=== PATIENT | male | born 1970 | race Caucasian/White ===

== ENCOUNTER 2019-02-13 11:07 | Observation (INO) ==
[2019-02-13 12:01] LABS: Hematocrit 40.4 % (42.0-52.0); Hemoglobin 14.1 gm/dL (13.5-18.0); Mean Cell Volume 98.5 fl (78-100); Mean Corpuscular Hemoglobin 34.4 pg (27-31); Mean Corpuscular Hgb Conc 34.9 g/dl (32-36); Mean Platelet Volume 8.7 fl (8-11.3); Neutrophil # 3.9 K/mm3 (1.3-6.0); Neutrophil % 64.6 % (42-75.0); Platelet Count 248 K/mm3 (150-450); Red Cell Distribution Width 11.9 % (11.5-14.0)
[2019-02-13 12:22] LABS: ALT 18 U/L (19-67); AST 18 U/L (0-48); Albumin * 3.8 gm/dl (3.4-5.0); Alkaline Phosphatase * 79 U/L (50-170); Anion Gap 10.7 mmol/L (6.8-13.8); Bilirubin, Total 0.6 mg/dL (0.0-1.1); Chloride 99 mmol/L (97-106); Potassium 3.7 mmol/L (3.4-4.6); Sodium 131 mmol/L (132-142); Total Protein 7.5 gm/dL (6.2-8.2)
[2019-02-13 12:30] LABS: BUN/Creatinine Ratio 10.7 (9.0-21.6); Blood Urea Nitrogen 9 mg/dL (6-23); Ca. Corrected For Albumin 8.7 mg/dL (8.4-10.2); Calcium * 8.9 mg/dL (7.9-10.9); Glucose * 105 mg/dL (70-110)
--- NOTE | 2019-02-13 12:51 | PN ---
Cesar Note - Interim Date: 02/13/19 Time: 12:45 Narrative: 02/13/19 12:45 I saw Madi Armas in the floor. H his physical exam remains the same. He does not elicit tremors. His blood work results showing essentially within normal limits except for a low TSH 0.008. Free T4, T3, TSI, are pending. He may have some neuropsychiatric behavioral changes from hyper parathyroidism but because he is on the beta-brando for his blood pressure most of his peripheral signs and symptoms are being masked. Consider doing thyroid ultrasound or radioactive thyroid uptake scan scan. We will also get an MRI of his brain in the morning. We will likely start him on some methimazole. My office notes will be my H&P for this admission.
[2019-02-13 14:38] LABS: Urine Bilirubin Negative (NEGATIVE); Urine Blood Negative /ul (NEGATIVE); Urine Ketone Negative (NEGATIVE); Urine Nitrite Negative (NEGATIVE); Urine Protein Negative (NEGATIVE); Urine Urobilinogen Normal (NORMAL); Urine pH 7.5 pH (5.0-7.0)
[2019-02-13 14:54] LABS: Urine Appearance Clear (CLEAR); Urine Bacteria None Seen; Urine Color Yellow; Urine RBC None Seen /hpf (0-5); Urine WBC None Seen /hpf (0-5)
[2019-02-13 14:57] LABS: Cocaine Ur Negative (NEGATIVE); Urine Barbiturate Negative (NEGATIVE); Urine Benzodiazepines Negative (NEGATIVE); Urine Opiates Negative (NEGATIVE); Urine PCP Negative (NEGATIVE); Urine THC Negative (NEGATIVE)
[2019-02-14] MEDS ORDERED: METOPROLOL SUCCINATE 50 MG TABLET.SA PO SCH (09:00)
[2019-02-14] MEDS ORDERED: CYANOCOBALAMIN 1,000 MCG TABLET PO SCH (09:00)
[2019-02-14 13:23] LABS: Hematocrit 40.4 % (42.0-52.0); Hemoglobin 14.1 gm/dL (13.5-18.0); Mean Cell Volume 98.5 fl (78-100); Mean Corpuscular Hemoglobin 34.4 pg (27-31); Mean Corpuscular Hgb Conc 34.9 g/dl (32-36); Mean Platelet Volume 8.6 fl (8-11.3); Neutrophil # 3.6 K/mm3 (1.3-6.0); Neutrophil % 58.8 % (42-75.0); Platelet Count 237 K/mm3 (150-450); Red Cell Distribution Width 11.7 % (11.5-14.0); White Blood Count 6.1 K/mm3 (4.0-10.5)
[2019-02-14 13:28] LABS: Anion Gap 11.6 mmol/L (6.8-13.8); BUN/Creatinine Ratio 15.3 (9.0-21.6); Calcium * 8.8 mg/dL (7.9-10.9); Carbon Dioxide 25.3 mmol/L (24-32.6); Estimated Creat Clear 96.2; Potassium 3.9 mmol/L (3.4-4.6)
--- NOTE | 2019-02-14 13:53 | PN ---
Progess Note - Interim Date: 02/14/19 Time: 13:43 Narrative: 02/14/19 13:43 awaiting spinal tap . work up so far shows low TSH, normal FT4. T3 TSI, TRAb, TPOA pending. while mild thyrotoxicosis can cause neuropsychiatric s/sx of agitation, restlesness, amnesia, anxiety, depression, irritability, cognitive impairment, poor decision making and concentration, constructional difficulties, we do not still have a dfinite diagnosis of hyperthyroidism. his BBlocker must also be blocking the peripheral effects of thyrotoxicosis. on the other hand we do have MRI abnormality of the right frontal lobe- early white matter microvascular disease but could be demyelinating dis. like MS or inflammatory process. will await tap results and call neurology. His low TSH, normal FT4 could be subclinical hyperthyroidism ( if T3 is normal), central hypothyroidism ( if T3 is normal or low-unlikely MRI -no pituitary ademoma). If T3 is high - T3 thyrotoxicosis (probabaly Graves ( [place]. if TSI/TRAb are positive)- will do POPE uptake thyroid scan, start methimazole.
[2019-02-14] MEDS ORDERED: LIDOCAINE HCL 10 ML VIAL IJ ONE (14:35)
[2019-02-14 15:03] LABS: Albumin * 3.6 gm/dl (3.4-5.0); Bilirubin Direct 0.1 mg/dL (0.0-0.3); Bilirubin, Total 0.4 mg/dL (0.0-1.1); Bilirubin,Indirect 0.3 mg/dL (0.1-0.7); Total Protein 7.1 gm/dL (6.2-8.2)
--- NOTE | 2019-02-14 15:43 | ANES ---
Anesthesia Procedure Note Procedure Note: ANESTHESIA PROCEDURE NOTE Date of procedure: 02/14/2019. Time of procedure: 1430. Performed by: Alistair Wilkinson CRNA Complaint Clerk: None . Preprocedure diagnosis: Altered mental status. Post procedure diagnosis: Same. Procedure: Lumbar puncture Indications: CSF analysis. Findings: Patient was placed in the left lateral decubitus position. His back was prepped with DuraPrep. Lower back was draped sterilely. 5 mL of 1% Xylocaine was injected into the surface of the skin and the subcutaneous tissue at the L3-4 interspace. A 22-gauge abdon spinal needle was used to puncture the dura. A small amount of blood was noted in the hub of the spinal needle. Opening pressure was measured at 12. A total of 8 mL of slightly blood-tinged CSF was obtained. 2 mL in each of 4 vials. Spinal needle was removed intact. Fluids: N/A. Specimen: N/A. Post procedure condition: The patient tolerated the procedure well. No complications were noted. Thank you for this consultation Alistair Wilkinson CRNA
[2019-02-14 16:32] LABS: CSF Appearance Clear (CLEAR)
[2019-02-14 16:38] LABS: CSF RBC 131 /uL (0-10); CSF WBC 0 /uL (0-10)
--- NOTE | 2019-02-14 17:15 | DS ---
(1) Altered mental status Problem: Suspected Qualifiers: Altered mental status type: unspecified Qualified Code(s): R41.82 - Altered mental status, unspecified (2) Hyperlipidemia Problem: Chronic Qualifiers: Hyperlipidemia type: pure hypercholesterolemia Qualified Code(s): E78.00 - Pure hypercholesterolemia, unspecified; E78.0 - Pure hypercholesterolemia (3) Hypertension Problem: Chronic Qualifiers: Hypertension type: essential hypertension Qualified Code(s): I10 - Essential (primary) hypertension Date of Discharge:: 02/14/19 Description of Stay: Madi Armas is a 48 year old male patient that presents to the clinic on 02/13/2019 for right foot limp. In the clinic he denied he had foot limp. Upon arrival he presents a letter from his employer [employer] that stats that they have concerns for Madi. He has been uncharacteristically distracted, staring into space for long periods of time and has made several inventory transposition errors. 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 He has had several accidents lately including losing stuff off of the fork lift including bulk seed bags which weigh in excess of 2000 pounds. He does not seem to notice forks not being centered or not seeing further out. Employer states that patient says he feels fine but they are very concerned for his safety given the nature of his work. They also feel that he is a potential threat to himself and others. All of this co-workers have noticed these changes and brought the concern to the attention of management at his workplace. Patient states he is not taking any medications except his blood pressure meds. We follow up with him annualy. He denied any illicit drug use. States that he doesn't know why he is here. He denied any pain of his extremity or limping, denies anxiety or depression, denied suicidal ideations, denied any problem with sleeping, denied any chest pain, shortness of breath, palpitations, denied any headache, blurring of vision, nausea or vomiting. He was admitted for observation and work-up results were within normal limits except for an abnormal TSH of 0.008 but with a normal free T4 of 1.6. His thyroid peroxidase antibody level were within normal. Free T3, TSI, thyroid receptor antibody level are still pending. His EKG showed normal sinus rhythm and chest x-ray showed no acute cardiopulmonary findings. His head CT scan showed no acute intracranial process. His MRI of his brain though showed solitary nonspecific white matter T2 focus on the right frontal lobe which may be early white matter microvascular ischemic the disease. This could represent demyelination such as multiple sclerosis, infection and inflammatory processes cannot be completely excluded but there is no other surrounding abnormality. Nonspecific parasite nasal sinus disease. He had a lumbar tap which showed no bacteria on Gram stain, culture is still pending. He had a clear CSF but with blood. CSF WBC was 0, red blood cell was 131. CSF total protein was 42.5, glucose was 60. Serum glucose was 110. Opening pressure was 12. CSF for oligoclonal bands are send out and pending. While mild thyrotoxicosis can cause neuropsychiatric s/sx of agitation, restlesness, amnesia, anxiety, depression, irritability, cognitive impairment, poor decision making and concentration, constructional difficulties, we do not still have a definite diagnosis of hyperthyroidism. His BBlocker also must be blocking the peripheral effects of thyrotoxicosis. His low TSH, normal FT4 could be subclinical hyperthyroidism ( if T3 is normal), central hypothyroidism ( if T3 is normal or low-unlikely MRI -no pituitary ademoma). If T3 is high - T3 thyrotoxicosis (probabaly Graves ( [place]. if TSI/TRAb are positive)- will do POPE uptake thyroid scan, start methimazole. Thyroiditis i less likely due to normal TPO antibody level. Since most of the labs we are waiting are send out. We will discharge patient and refer him to [facility] on outpatient basis for his abnormal MRI . If he does have thyrotoxicosis we will schedule him a POPE uptake iodide scan and start him on low dose methimazole. We will refer him to Endocrinology. Follow up with me in 1 week. In the meantime he will be released form work until he follows up with me. Procedures Performed: see notes below List Procedures: lumbar tap Results and Findings: Pending Mircobiology Results 02/14/19 15:30 Cerebral Spinal Fluid CSF Culture - Pending Lab Pending Results 02/13/19 11:50: WBC 6.0, RBC 4.10 L, Hgb 14.1, Hct 40.4 L, MCV 98.5, MCH 34.4 H, MCHC 34.9, RDW 11.9, Plt Count 248, MPV 8.7, Immature Gran % (Auto) 0.20, Imm ature Gran # (Auto) 0.01, Neutrophils % 64.6, Lymphocytes % 23.1, Monocytes % 6.7, Eosinophils % 4.2 H, Basophils % 1.2 H, Nucleated RBC % 0.0, Neutrophils # 3.9, Lymphocytes # 1.38 L, Monocytes # 0.4, Eosinophils # 0.3, Absolute Basophils 0.1 02/13/19 11:50: Sodium 131 L, Plasma Sodium 131, Potassium 3.7, Chloride 99, Carbon Dioxide 25.0, Anion Gap 10.7, BUN 9, Creatinine 0.84, Est GFR (Non-Af Amer) 104, BUN/Creatinine Ratio 10.7, Random Glucose 105, Calcium 8.9, Calcium Adj for Albumin 8.7, Total Bilirubin 0.6, AST 18, ALT 18 L, Alkaline Phosphatase 79, Total Protein 7.5, Albumin 3.8, TSH (Reflex) 0.008 L, Ethyl Alcohol Less than 3.0 02/13/19 12:31: Free T4 1.16 02/13/19 12:31: Free T3 3.4, Thyroid Peroxidase Ab <1 02/13/19 14:30: Urine Opiates Screen Negative, Barbiturate Screen Negative, Ur Phencyclidine Scrn Negative, Urine Amphetamine Negative, U Benzodiazepines Scrn Negative, Urine Cocaine Screen Negative, Urine Marijuana (THC) Negative 02/13/19 14:30: Urine Color Yellow, Urine Appearance Clear, Urine pH 7.5, Ur Specific [place] 1.010, Urine Protein Negative, Urine Glucose (UA) Negative, Urine Ketones Negative, Urine Blood Negative, Urine Nitrate Negative, Urine Bilirubin Negative, Urine Urobilinogen Normal, Ur Leukocyte Esterase Negative, Urine RBC None seen, Urine WBC None seen, Ur Epithelial Cells None seen, Urine Bacteria None seen 02/13/19 18:55: ESR 7 02/13/19 18:55: C-Reactive Prot, Quant Less than 0.2 02/14/19 13:16: WBC 6.1, RBC 4.10 L, Hgb 14.1, Hct 40.4 L, MCV 98.5, MCH 34.4 H, MCHC 34.9, RDW 11.7, Plt Count 237, MPV 8.6, Immature Gran % (Auto) 0.30, Immat ure Gran # (Auto) 0.02, Neutrophils % 58.8, Lymphocytes % 27.2, Monocytes % 8.4, Eosinophils % 4.1 H, Basophils % 1.2 H, Nucleated RBC % 0.0, Neutrophils # 3.6, Lymphocytes # 1.65, Monocytes # 0.5, Eosinophils # 0.3, Absolute Basophils 0.1 02/14/19 13:16: Sodium 134, Plasma Sodium 134, Potassium 3.9, Chloride 101, Carbon Dioxide 25.3, Anion Gap 11.6, BUN 15 D, Creatinine 0.98, Est GFR (Non-Af Amer) 87, BUN/Creatinine Ratio 15.3, Random Glucose 110, Calcium 8.8 02/14/19 13:16: Total Bilirubin 0.4, Direct Bilirubin 0.1, Indirect Bilirubin 0.3, AST 16, ALT 15 L, Alkaline Phosphatase 83, Total Protein 7.1, Albumin 3.6 02/14/19 15:30: CSF Appearance Clear, CSF Color Blood tinged, CSF WBC 0, CSF RBC 131 H 02/14/19 15:30: CSF Glucose 60, CSF Total Protein 42.5 Discharge Location: Home Disposition: Home self-care Condition: Stable Discharge Activity: Activity as tolerated Discharge Diet: General/regular food Referrals: Mateo Dickerson MD [Primary Care Provider] - Additional Patient Instructions (free text): Follow up with PCP in 1 week. Please make a referral to Neurology- AMS /Abnormal MRI in 1 week. Complete Home Medications List: Complete Home Medication List: Cyanocobalamin [Vitamin B-12] 1,000 mcg PO DAILY 11/08/12 metoprolol succinate ER 50 mg tablet,extended release 24 hr 50 mg PO DAILY #90 tab 05/22/18
[2019-02-14 21:50] VITALS: BP 125/80
== END 2019-02-14 19:25 | disposition home or self-care (01) ==
LOC: MS
PROVIDERS: ADMIT Internal Medicine; ATTEND Internal Medicine
DX: R41.82 Altered mental status, unspecified; I10 Essential (primary) hypertension; E78.00 Pure hypercholesterolemia, unspecified
CPT/HCPCS: 36415; 62270; 70450; 70553; 71020; 71046; 80048; 80053; 80076; 80307; 80320; 81001; 82945; 82947; 83519; 83916; 84155; 84157; 84439; 84443; 84445; 84481; 85025; 85652; 86140; 86376; 87070; 87205; 89051; 93005; A9576; G0378; G0379; G0481